=== PATIENT | male | born 1965 | race Caucasian/White ===

== ENCOUNTER 2018-03-11 01:41 | Emergency (ER) | payer OTHER ==
[2018-03-11] MEDS ORDERED: ASPIRIN CHEWABLE PO STA (01:44)
[2018-03-11] MEDS ORDERED: GI COCKTAIL PO STA (01:44)
--- NOTE | 2018-03-11 01:48 | ED.PDOC ---
General ED Provider: Dr. RUBENS HERNÁNDEZ Chief Complaint: Chest Pain Stated Complaint: Patient is a 52 year old male who comes to the ER after he started having chest discomfort that woke him from sleep. He admits to eating pizza prior to going to bed last night. Time Seen by Physician: 01:46 Mode of Arrival: Walk-In Information Source: Patient Exam Limitations: No limitations Nursing and Triage Documentation Reviewed and Agree: Yes Does patient meet sepsis criteria?: No System Inflammatory Response Syndrome: Not Applicable Sepsis Protocol: For patient's 13 years and over: Temp is 96.8 and below OR 101 and greater Pulse >90 BPM Resp >20/minute Acutely Altered Mental Status Are patient's symptoms suggestive of a new infection, such as: -Pneumonia -Skin, Soft Tissue -Endocarditis -UTI -Bone, Joint Infection -Implantable Device -Acute Abdominal Infection -Wound Infection -Meningitis -Blood Stream Catheter Infection -Unknown Review of Systems - Review Of Systems Constitutional: Reports: No symptoms Eyes: Reports: No symptoms Ears, Nose, Mouth, Throat: Reports: No symptoms Respiratory: Reports: No symptoms Cardiac: Reports: Chest pain GI: Reports: No symptoms : Reports: No symptoms Musculoskeletal: Reports: No symptoms Skin: Reports: No symptoms Neurological: Reports: No symptoms Endocrine: Reports: No symptoms Hematologic/Lymphatic: Reports: No symptoms All Other Systems: Reviewed and Negative Past Medical History - Past Medical History Previously Healthy: Yes Endocrine: Reports: None Cardiovascular: Reports: None Respiratory: Reports: None Hematological: Reports: None Gastrointestinal: Reports: GERD Genitourinary: Reports: None Neuro/Psych: Reports: None Musculoskeletal: Reports: None Cancer: Reports: None - Surgical History General Surgical History: Reports: None - Family History Family History: Reports: None - Social History Smoking Status: Never smoker Physical Exam - Physical Exam Appearance: Well-appearing Ill-appearing: Mild Pain Distress: Moderate Eyes: TASH, EOMI, Conjunctiva clear ENT: Ears normal, Nose normal, Oropharynx normal Neck: Supple Respiratory: Airway patent, Breath sounds clear, Breath sounds equal, Respirations nonlabored Cardiovascular: RRR, Pulses normal, No rub, No murmur GI/: Soft, Nontender, No masses, Bowel sounds normal, No Organomegaly Musculoskeletal: Normal strength, ROM intact, No edema, No calf tenderness Skin: Warm, Dry, Normal color Neurological: Alert, Oriented Psychiatric: Anxious Interpretation - Radiology Interpretation Radiology Interpretation By: ED Physician Radiology Results: Negative Exam Interpreted: Portable 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 - 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 Rate: Normal Rhythm: Sinus Ectopy: None - EKG Interpretation Time of EKG #1: 01:43 Rate: Normal Rhythm: Sinus Ectopy: None Gurley: NL ST Segment: Normal Re-Evaluation - Re-Evaluation Time of Re-Evaluation: 03:57 Status: Improved Vital Signs Stable: Yes Pain Level: gone Critical Care Note - Critical Care Note Total Time (mins): 0 Course - Course Hematology/Chemistry: 03/11/18 01:50 03/11/18 01:50 Orders, Labs, Meds: Lab Review 03/11/18 03/11/18 03/11/18 01:50 01:50 01:50 WBC 7.13 RBC 5.52 Hgb 15.5 Hct 46.0 MCV 83.3 MCH 28.1 MCHC 33.7 RDW Coeff of Renate 12.9 Plt Count 234 Immature Gran % (Auto) 0.3 Neut % (Auto) 34.4 Lymph % (Auto) 50.8 H [place] % (Auto) 10.4 H Eos % (Auto) 3.4 Baso % (Auto) 0.7 Immature Gran # (Auto) 0.0 Neut # (Auto) 2.5 Lymph # (Auto) 3.6 H [place] # (Auto) 0.7 Eos # (Auto) 0.2 Baso # (Auto) 0.1 D-Dimer (Manual) 218.19 Sodium 139.2 Potassium 3.43 L Chloride 103.3 Carbon Dioxide 30.2 H Anion Gap 9.13 BUN 20.5 H Creatinine 0.89 Estimated GFR (MDRD) 90.00 BUN/Creatinine Ratio 23.03 Glucose 101.0 Calcium 9.54 Total Bilirubin 0.60 AST 32.5 ALT 46.5 Alkaline Phosphatase 48.5 Total Creatine Kinase 136.6 CK-MB (CK-2) 1.380 CK-MB (CK-2) % 1.0100 Troponin I < 0.012 Total Protein 7.46 Albumin 4.52 Globulin 2.94 Albumin/Globulin Ratio 1.53 Orders Category Date Time Status EKG-(ED ONLY) Stat CARDIO 03/11/18 01:44 Ordered ED FARM OPERATIONS MANAGER APPLIED .ONCE EMERGENCY 03/11/18 01:44 Active ED IV/MEDIPORT/POWERPORT .ONCE EMERGENCY 03/11/18 02:02 Active CBC W/ AUTO DIFF Stat LAB 03/11/18 01:50 Completed COMPREHENSIVE METABOLIC PANEL Stat LAB 03/11/18 01:50 Completed CREATINE KINASE Stat LAB 03/11/18 01:50 Completed D-DIMER Stat LAB 03/11/18 01:50 Completed TROPONIN I Stat LAB 03/11/18 01:50 Completed 0.9 % Sodium Chloride [Saline Flush] MEDS 03/11/18 02:03 Ordered 1 syr IVF PRN PRN Aspirin [Aspirin Chewable] MEDS 03/11/18 01:44 Discontinued 324 mg PO ONCE STA Ketorolac Tromethamine [Toradol] MEDS 03/11/18 02:43 Discontinued 30 mg IVP ONCE STA Mag-Al Plus//Lidocaine [Gi Cocktail] MEDS 03/11/18 01:44 Discontinued 30 ml PO ONCE STA Nitroglycerin [Nitrostat] MEDS 03/11/18 02:03 Discontinued 0.4 mg SL ONCE STA Ondansetron HCl/Pf [Zofran 4 mg/2 ml] MEDS 03/11/18 02:43 Discontinued 4 mg IVP ONCE STA Sodium Chloride 0.9% [Sodium Chloride] 500 ml MEDS 03/11/18 02:03 Active IV 100 mls/hr CHEST, 1V AP ONLY Stat RADS 03/11/18 01:44 Taken Medications Generic Name Dose Route Start Last Admin Trade Name Freq PRN Reason Stop Dose Admin Sodium Chloride 500 mls @ 100 mls/hr 03/11/18 02:03 03/11/18 02:16 Sodium Chloride IV 03/11/18 07:02 100 mls/hr .Q5H STA Administration Sodium Chloride 1 syr 03/11/18 02:03 Saline Flush IVF PRN PRN To flush IV Discontinued Medications Generic Name Dose Route Start Last Admin Trade Name Freq PRN Reason Stop Dose Admin Al Hydroxide/Mg Hydroxide 30 ml 03/11/18 01:44 03/11/18 01:55 Gi Cocktail PO 03/11/18 01:45 30 ml ONCE STA Administration Aspirin 324 mg 03/11/18 01:44 03/11/18 01:55 Aspirin Chewable PO 03/11/18 01:45 324 mg ONCE STA Administration Ketorolac Tromethamine 30 mg 03/11/18 02:43 03/11/18 02:48 Toradol IVP 03/11/18 02:44 30 mg ONCE STA Administration Nitroglycerin 0.4 mg 03/11/18 02:03 03/11/18 02:15 Nitrostat SL 03/11/18 02:04 0.4 mg ONCE STA Administration Ondansetron HCl 4 mg 03/11/18 02:43 03/11/18 02:48 Zofran 4 Mg/2 Ml IVP 03/11/18 02:44 4 mg ONCE STA Administration Vital Signs: Temp Pulse Resp BP Pulse Ox 03/11/18 01:42 98.9 F 89 20 147/92 H 98 PARKER Risk Score Age >/= 65: No >/= 3 CAD Risk Factors: No Known CAD (Stenosis >/= 50%): No ASA Use in Past 7 Days: No Severe Angina (>/= 2 episodes in 24 hours): No EKG ST Changes >/= 0.5mm: No Postive Cardiac Marker: No PARKER Total Score: 0 PARKER Risk Score: Risk Score Odds of by 30D 0 0.1 (0.1-0.2) 1 0.3 (0.2-0.3) 2 0.4 (0.3-0.5) 3 0.7 (0.6-0.9) 4 1.2 (1.0-1.5) 5 2.2 (1.9-2.6) 6 3.0 (2.5-3.6) 7 4.8 (3.8-6.1) Departure - Departure Time of Disposition: 03:56 Disposition: HOME SELF-CARE Discharge Problem: Chest pain GERD (gastroesophageal reflux disease) Qualifiers: Esophagitis presence: with esophagitis Qualified Code(s): K21.0 - Gastro- esophageal reflux disease with esophagitis Instructions: Noncardiac Chest Pain (ED), Gastroesophageal Reflux Disease (ED) Condition: Good Pt referred to PMD for follow-up: Yes IPMP verified?: No Additional Instructions: Follow up with PCP in 1-2 days Return if worse. Allergies/Adverse Reactions: Allergies No Known Allergies Allergy (Unverified 03/11/18 01:52) Home Medications: Ambulatory Orders Omeprazole [Prilosec] 20 mg PO QDAC 03/11/18 Disposition Discussed With: Patient
[2018-03-11 01:53] VITALS: BMI 29.9
[2018-03-11] MEDS ORDERED: SODIUM CHLORIDE 500 ML IV STA (02:03)
[2018-03-11] MEDS ORDERED: NITROSTAT SL STA (02:03)
[2018-03-11] MEDS ORDERED: ZOFRAN 4 MG/2 ML IVP STA (02:43)
[2018-03-11] MEDS ORDERED: TORADOL IVP STA (02:43)
[2018-03-11 04:06] VITALS: BP 126/82; TEMP 98.6
--- NOTE | 2018-03-11 07:21 | DI ---
EXAM: CHEST FRONTAL VIEW HISTORY: Chest pain. COMPARISON: None FINDINGS: Heart size and mediastinum within normal limits. Lungs are free of infiltrate. No co nsolidation or pleural fluid. There is no pneumothorax or acute bony finding. IMPRESSION: Findings within normal limits.
== END 2018-03-11 04:00 | disposition home or self-care (01) ==
LOC: ED 01:41
DX: R07.9 Chest pain, unspecified (principal); K21.0 Gastro-esophageal reflux disease with esophagitis
CPT/HCPCS: 36415; 80053; 82550; 82553; 84484; 85025; 85379; 93005; 93010; 96361; 96374; 96375; 99283